=== PATIENT | female | born 1965 | race Caucasian/White ===

== ENCOUNTER 2020-03-18 05:30 | Inpatient (IN) | payer BC ==
[~2020-03-18] VITALS: Ht 157.5 cm; Wt 82.1 kg
[2020-03-18 06:22] LABS: HEMATOCRIT. 41.4 % (36.0-48.0); HEMOGLOBIN. 14.1 g/dL (12.0-16.0); LYMPHOCYTES % 24.7 % (20.0-50.0); MEAN CORPUSCULAR HEMOGLOBIN 28.6 pg (28.0-32.0); MEAN CORPUSCULAR VOLUME 83.9 fL (81.0-99.0); MEAN PLATELET VOLUME 7.4 fl (7.4-10.4); MONOCYTES % 4.9 % (2.0-8.0); NEUTROPHILS % 67.4 % (40.0-76.0); PLATELET 229 x1000/uL (130-400); RED BLOOD CELL COUNT 4.93 mill/uL (4.2-5.4); RED CELL DISTRIBUTION WIDTH 13.8 % (11.6-14.6)
[2020-03-18 06:27] LABS: CHLORIDE 107 mEq/L (98-107)
[2020-03-18] MEDS ORDERED: POTASSIUM CHLORIDE 20MEQ TABLET SR PO ONE (07:00)
[2020-03-18] MEDS ORDERED: ASPIRIN 325MG TABLET PO ONE (07:00)
[2020-03-18] MEDS ORDERED: KCL 10MEQ/50ML PREMIX 50 ML IV ONE (07:00)
[2020-03-18] MEDS ORDERED: ACETAMINOPHEN 325MG TABLET PO PRN ×2 (07:45)
[2020-03-18] MEDS ORDERED: IPRATROPIUM/ALBUTEROL 0.5-3(2.5)MG/3ML NEB NEB PRN (07:45)
[2020-03-18] MEDS ORDERED: GUAIFENESIN 200MG/10ML SUGAR FREE UDC PO PRN (07:45)
[2020-03-18] MEDS ORDERED: ONDANSETRON HCL 4MG/2ML INJ IV PRN (07:45)
[2020-03-18] MEDS ORDERED: MAGNESIUM/ALUMINUM HYDROXIDE/SIMETHICONE 30ML UDC PO PRN (07:45)
[2020-03-18] MEDS ORDERED: CLONIDINE 0.1MG TABLET PO PRN (07:45)
[2020-03-18] MEDS ORDERED: NITROGLYCERIN 0.4MG TABLET SL SL PRN (07:45)
[2020-03-18] MEDS ORDERED: DOCUSATE SODIUM 100MG CAPSULE PO PRN (07:45)
[2020-03-18] MEDS ORDERED: LORAZEPAM 0.5MG TABLET PO PRN (07:45)
[2020-03-18] MEDS ORDERED: TRAMADOL 50MG TABLET PO PRN (07:45)
[2020-03-18 08:03] LABS: ETHANOL BLOOD < 10 mg/dL
[2020-03-18 08:05] LABS: PHOSPHORUS 2.6 mg/dL (2.5-4.9)
[2020-03-18] MEDS ORDERED: POTASSIUM CHLORIDE 20MEQ TABLET SR PO SCH (08:05)
[2020-03-18 08:24] LABS: D-DIMER 0.38 mg/L FEU (<0.50); INR 1.1; PROTHROMBIN TIME 11.5 sec (9.6-11.0)
[2020-03-18] MEDS ORDERED: ENOXAPARIN 100MG/ML SYR SUBCUT SCH (09:00)
[2020-03-18] MEDS: ASPIRIN 325MG EC TABLET PO SCH (09:00)
[2020-03-18 09:59] VITALS: BP 154/89
[2020-03-18] MEDS ORDERED: KCL 20MEQ/100ML PREMIX 100 ML IV SCH (11:00)
[2020-03-18] MEDS: GUAIFENESIN/DM 600MG/30MG ER TAB 12HR PO SCH ×2 (11:35→20:41)
[2020-03-18] MEDS: ZINC SULFATE 220 MG ( 50 ) CAPSULE PO SCH (11:35)
[2020-03-18] MEDS: FAMOTIDINE 20MG TABLET PO SCH ×2 (11:35→20:41)
[2020-03-18] MEDS: ASCORBIC ACID 500 MG TABLET PO SCH ×2 (11:36→20:41)
[2020-03-18] MEDS: LISINOPRIL 20MG TABLET PO SCH ×2 (11:39→20:42)
[2020-03-18 11:48] VITALS: BP 120/68
[2020-03-18 16:00] VITALS: BP 123/79
[2020-03-18 19:51] LABS: CLARITY URINE CLOUDY (CLEAR); COLOR URINE YELLOW (YELLOW); KETONES URINE NEGATIVE (NEGATIVE); LEUKOCYTE ESTERASE URINE 2+ (NEGATIVE); NITRITE URINE NEGATIVE (NEGATIVE); OCCULT BLOOD URINE 1+ (NEGATIVE); PH URINE 5.5 (4.5-8.0); PROTEIN URINE NEGATIVE (NEGATIVE); SPECIFIC GRAVITY URINE 1.022 (1.005-1.030); UROBILINOGEN URINE 0.2 E.U./dL (0.2-1.0)
[2020-03-18 20:00] VITALS: BP 140/80
[2020-03-18] MEDS ORDERED: ZOLPIDEM TARTRATE 5MG TABLET PO PRN (20:00)
[2020-03-18 20:10] LABS: *AMPHETAMINES SCREEN URINE NEGATIVE (NEGATIVE); *BARBITURATES SCREEN URINE NEGATIVE (NEGATIVE); *BENZODIAZEPINES SCREEN URINE NEGATIVE (NEGATIVE); *COCAINE SCREEN URINE NEGATIVE (NEGATIVE)
[2020-03-18 20:11] LABS: CANNABINOID URINE SCREEN NEGATIVE (NEGATIVE); METHADONE URINE SCREEN NEGATIVE (NEGATIVE); OPIATES URINE SCREEN PRESUMTIVE POSITIVE (NEGATIVE); PHENCYCLIDINE URINE SCREEN NEGATIVE (NEGATIVE)
[2020-03-18] MEDS: ENOXAPARIN 80MG/0.8ML SYR SUBCUT SCH (20:44)
[2020-03-19] VITALS: BP 160/98
[2020-03-19 04:00] VITALS: BP 122/86
[2020-03-19] MEDS: FAMOTIDINE 20MG TABLET PO SCH ×2 (09:00→20:31)
[2020-03-19] MEDS: ASPIRIN 325MG EC TABLET PO SCH (09:00)
[2020-03-19] MEDS: LISINOPRIL 20MG TABLET PO SCH ×2 (09:00→20:31)
[2020-03-19] MEDS: ENOXAPARIN 80MG/0.8ML SYR SUBCUT SCH ×2 (09:00→20:32)
[2020-03-19] MEDS: GUAIFENESIN/DM 600MG/30MG ER TAB 12HR PO SCH ×2 (09:00→20:31)
[2020-03-19] MEDS: ZINC SULFATE 220 MG ( 50 ) CAPSULE PO SCH (09:00)
[2020-03-19] MEDS: ASCORBIC ACID 500 MG TABLET PO SCH ×2 (09:00→20:31)
[2020-03-19 12:00] VITALS: BP 130/77
[2020-03-19] MEDS ORDERED: MIDAZOLAM HCL 2 MG/2 ML VIAL ONE (13:45)
[2020-03-19] MEDS ORDERED: FENTANYL CITRATE/PF 50MCG/ML 2ML VIAL ONE (13:45)
[2020-03-19] MEDS ORDERED: HEPARIN SODIUM 1,000 UNIT/1ML VIAL IV ONE (15:12)
[2020-03-19] MEDS ORDERED: ATROPINE SULFATE 1MG/10ML SYR IV PRN (16:15)
[2020-03-19 20:00] VITALS: BP 143/81
[2020-03-19 20:17] LABS: CHLORIDE 106 mEq/L (98-107)
[2020-03-19 20:24] LABS: PHOSPHORUS 3.4 mg/dL (2.5-4.9)
[2020-03-20] VITALS: BP 110/72
[2020-03-20 04:00] VITALS: BP 136/84
[2020-03-20 04:30] LABS: BASOPHILS % 1.2 % (0.0-2.0); CHLORIDE 107 mEq/L (98-107); EOSINOPHILS % 4.1 % (0.0-5.0); HEMATOCRIT. 41.6 % (36.0-48.0); HEMOGLOBIN. 14.1 g/dL (12.0-16.0); LYMPHOCYTES % 29.9 % (20.0-50.0); MEAN CORPUSCULAR HEMOGLOBIN 28.6 pg (28.0-32.0); MEAN CORPUSCULAR VOLUME 84.6 fL (81.0-99.0); MEAN PLATELET VOLUME 7.8 fl (7.4-10.4); MONOCYTES % 7.2 % (2.0-8.0); NEUTROPHILS % 57.6 % (40.0-76.0); PLATELET 218 x1000/uL (130-400); RED BLOOD CELL COUNT 4.92 mill/uL (4.2-5.4); RED CELL DISTRIBUTION WIDTH 13.6 % (11.6-14.6)
[2020-03-20 08:00] VITALS: BP 138/75
[2020-03-20] MEDS: ENOXAPARIN 80MG/0.8ML SYR SUBCUT SCH (09:00)
[2020-03-20] MEDS: ZINC SULFATE 220 MG ( 50 ) CAPSULE PO SCH (09:12)
[2020-03-20] MEDS: ASPIRIN 325MG EC TABLET PO SCH (09:12)
[2020-03-20] MEDS: ASCORBIC ACID 500 MG TABLET PO SCH (09:12)
[2020-03-20] MEDS: LISINOPRIL 20MG TABLET PO SCH (09:12)
[2020-03-20] MEDS: GUAIFENESIN/DM 600MG/30MG ER TAB 12HR PO SCH (09:12)
[2020-03-20] MEDS: FAMOTIDINE 20MG TABLET PO SCH (09:12)
[2020-03-20 09:48] VITALS: BP 138/75
[2020-03-20] MEDS ORDERED: ATOR10TA MT (12:37)
== END 2020-03-20 15:10 | disposition home or self-care (01) | DRG 281 ==
LOC: ER 05:30 → 8WST 06:54 → EDBEDREQTM 07:03 → EDBEDREQ 07:03 → ENRESERV 07:52 → ER 08:59
PROVIDERS: ADMIT Internal Medicine; ATTEND Internal Medicine
PROC: B34HZZZ Ultrasonography of Right Upper Extremity Arteries (ICD-10-PCS; principal; 2020-03-19)
PROC: B211YZZ Fluoroscopy of Multiple Coronary Arteries using Other Contrast (ICD-10-PCS; 2020-03-19)
DX: I21.4 Non-ST elevation (NSTEMI) myocardial infarction (principal); I50.22 Chronic systolic (congestive) heart failure; E87.2 Acidosis; I42.0 Dilated cardiomyopathy; E44.1 Mild protein-calorie malnutrition; E87.6 Hypokalemia; E66.9 Obesity, unspecified; I25.10 Atherosclerotic heart disease of native coronary artery without angina pectoris; K52.9 Noninfective gastroenteritis and colitis, unspecified; E78.00 Pure hypercholesterolemia, unspecified; I11.0 Hypertensive heart disease with heart failure; Z68.33 Body mass index [BMI] 33.0-33.9, adult
CPT/HCPCS: 36415; 71045; 80048; 80053; 80061; 80305; 80320; 81003; 82728; 83036; 83605; 83615; 83735; 83880; 84100; 84145; 84484; 85025; 85379; 93005; 93306; 93454; 93970; 99291; C1769; C1887; C1893; J1644; J1650; J2250; J3010; J3480; G0480

== ENCOUNTER 2024-07-11 08:24 | Inpatient (IN) | payer BC ==
[2024-07-11] VITALS (36 sets, daily range): BP systolic 80–127; BP diastolic 54–101; PULSE 82–109; RESP 14–22; TEMP 36.6696–37.00296; O2SAT 91–100
[~2024-07-11] VITALS: Ht 157.5 cm; Wt 87.5 kg
[~2024-07-11 08:24] MED LIST: ATOR10TA MT
[2024-07-11 09:01] LABS: CHLORIDE 105 mEq/L (98-107); SODIUM 142 mEq/L (136-145)
[2024-07-11 09:02] LABS: CALCIUM 8.9 mg/dL (8.7-10.4); CARBON DIOXIDE 29 mEq/L (21-32)
[2024-07-11 09:06] LABS: BASOPHILS % 0.7 % (0.0-2.0); EOSINOPHILS % 2.3 % (0.0-5.0); HEMATOCRIT. 45.5 % (36.0-48.0); HEMOGLOBIN. 15.3 g/dL (12.0-16.0); LYMPHOCYTES % 18.7 % (20.0-50.0); MEAN CORPUSCULAR HEMOGLOBIN 29.4 pg (28.0-32.0); MEAN CORPUSCULAR HGB CONC 33.7 g/dL (31.0-37.0); MEAN CORPUSCULAR VOLUME 87.3 fL (81.0-99.0); MEAN PLATELET VOLUME 7.6 fl (7.4-10.4); MONOCYTES % 6.1 % (2.0-8.0); NEUTROPHILS % 72.2 % (40.0-76.0); PLATELET 211 x1000/uL (130-400); RED BLOOD CELL COUNT 5.21 mill/uL (4.2-5.4); WHITE BLOOD COUNT 9.2 x1000/uL (4.5-11.0)
[2024-07-11 09:07] LABS: CREATININE 0.8 mg/dL (0.6-1.0); GLUCOSE 134 mg/dL (70-105); UREA NITROGEN BLOOD 9 mg/dL (9-23)
[2024-07-11] MEDS: TENECTEPLASE 50MG/VIAL IV ONE (09:10)
[2024-07-11 09:17] LABS: ETHANOL BLOOD < 10 mg/dL (<10)
[2024-07-11] MEDS ORDERED: FURO40TA5 PO (09:18)
[2024-07-11] MEDS ORDERED: METO-396 PO (09:18)
[2024-07-11] MEDS ORDERED: POTA-204 PO (09:18)
[2024-07-11] MEDS ORDERED: ATOR40TA70 PO (09:18)
[2024-07-11] MEDS ORDERED: VALS40TA11 PO (09:18)
[2024-07-11] MEDS ORDERED: SACU1TAB PO (09:18)
[2024-07-11 09:19] LABS: INR 1.1; TROPONIN I HIGH SENSITIVITY 574 ng/L (3.0-34)
[2024-07-11] MEDS: IOHEXOL-350 100 ML BOTTLE ONE (09:28)
[2024-07-11] MEDS ORDERED: GUAIFENESIN 200MG/10ML SUGAR FREE UDC PO PRN (09:30)
[2024-07-11] MEDS ORDERED: LABETALOL 5MG/ML 4ML INJ IV PRN (09:30)
[2024-07-11] MEDS ORDERED: MAGNESIUM/ALUMINUM HYDROXIDE/SIMETHICONE 30ML UDC PO PRN (09:30)
[2024-07-11] MEDS ORDERED: DOCUSATE SODIUM 100MG CAPSULE PO PRN (09:30)
[2024-07-11] MEDS ORDERED: IPRATROPIUM/ALBUTEROL 0.5-3(2.5)MG/3ML NEB HHN PRN (09:30)
[2024-07-11] MEDS ORDERED: ONDANSETRON HCL 4MG/2ML INJ IV PRN (09:30)
[2024-07-11] MEDS ORDERED: ATORVASTATIN CALCIUM 20MG TABLET PO SCH (09:45)
[2024-07-11] MEDS ORDERED: *TENECTEPLASE FOR AIS XX SCH (09:45)
[2024-07-11 10:13] LABS: T4 FREE 1.14 ng/dL (0.89-1.76)
[2024-07-11 10:14] LABS: THYROID STIMULATING HORMONE 2.55 uIU/mL (0.55-4.78)
[2024-07-11] MEDS: KCL 20MEQ/100ML PREMIX 100 ML IV SCH (10:27)
[2024-07-11 12:16] LABS: VITAMIN B12 SERUM 976 pg/mL (211-911)
[2024-07-11] MEDS ORDERED: NICARDIPINE 100 MG in SODIUM CHLORIDE 0.9% 60 ML IV PRN (16:30)
[2024-07-11] MEDS ORDERED: NICARDIPINE 40MG/200ML PREMIX 200 ML IV PRN (17:00)
[2024-07-11] MEDS: FAMOTIDINE 20MG TABLET PO SCH (21:45)
[2024-07-11] MEDS: ATORVASTATIN CALCIUM 40MG TABLET PO SCH (21:45)
[2024-07-11 22:50] LABS: CREATINE KINASE 64 IU/L (34-145)
[2024-07-12] VITALS (81 sets, daily range): BP systolic 95–161; BP diastolic 37–111; PULSE 85–111; RESP 13–34; TEMP 36.44736–36.6696; O2SAT 89–98
[2024-07-12] MEDS: ACETAMINOPHEN 325MG TABLET PO PRN (03:21)
[2024-07-12 04:35] LABS: CHLORIDE 105 mEq/L (98-107); SODIUM 142 mEq/L (136-145)
[2024-07-12 04:36] LABS: CALCIUM 9.1 mg/dL (8.7-10.4); CARBON DIOXIDE 27 mEq/L (21-32)
[2024-07-12 04:41] LABS: CREATININE 0.7 mg/dL (0.6-1.0); GLUCOSE 105 mg/dL (70-105); UREA NITROGEN BLOOD 15 mg/dL (9-23)
[2024-07-12 04:53] LABS: BASOPHILS % 0.7 % (0.0-2.0); HEMATOCRIT. 44.3 % (36.0-48.0); HEMOGLOBIN. 14.9 g/dL (12.0-16.0); MEAN CORPUSCULAR HEMOGLOBIN 29.5 pg (28.0-32.0); MEAN CORPUSCULAR HGB CONC 33.5 g/dL (31.0-37.0); MEAN PLATELET VOLUME 7.9 fl (7.4-10.4); MONOCYTES % 8.3 % (2.0-8.0); PLATELET 205 x1000/uL (130-400); RED BLOOD CELL COUNT 5.03 mill/uL (4.2-5.4); RED CELL DISTRIBUTION WIDTH 14.4 % (11.6-14.6); WHITE BLOOD COUNT 7.9 x1000/uL (4.5-11.0)
[2024-07-12] MEDS: KCL 20MEQ/100ML PREMIX 100 ML IV SCH (08:40)
[2024-07-12] MEDS: FUROSEMIDE 40MG TABLET PO SCH (08:40)
[2024-07-12 09:37] LABS: TROPONIN I HIGH SENSITIVITY 494 ng/L (3.0-34)
[2024-07-12] MEDS: KCL 20MEQ/100ML PREMIX 100 ML IV NR (10:15)
[2024-07-12] MEDS: POTASSIUM CHLORIDE 20MEQ TABLET SR PO NR (11:39)
[2024-07-12] MEDS: MELATONIN 3MG TABLET PO NR (23:01)
[2024-07-13] VITALS: BP 112/69; PULSE 107; RESP 19; TEMP 36.28068; O2SAT 94
[2024-07-13 04:00] VITALS: BP 96/63; PULSE 95; RESP 19; TEMP 36.89184; O2SAT 98
[2024-07-13 08:00] VITALS: BP 115/83; PULSE 85; RESP 18; TEMP 36.28068; O2SAT 93
[2024-07-13] MEDS: ASPIRIN 81MG TABLET PO SCH (08:47)
[2024-07-13] MEDS: CLOPIDOGREL 75MG TABLET PO SCH (08:47)
[2024-07-13] MEDS ORDERED: CLOP-31 PO (10:14)
[2024-07-13] MEDS ORDERED: ASPI-1406 PO (10:14)
[2024-07-13 11:47] VITALS: BP 115/83; PULSE 95; TEMP 97.3; O2SAT 93
[2024-07-13 12:00] VITALS: BP 119/90; PULSE 101; RESP 19; TEMP 36.3918; TEMP 36.39180; O2SAT 95
[2024-07-13 12:36] LABS: BASOPHILS % 0.7 % (0.0-2.0); EOSINOPHILS % 3.1 % (0.0-5.0); HEMATOCRIT. 46.4 % (36.0-48.0); HEMOGLOBIN. 15.5 g/dL (12.0-16.0); MEAN CORPUSCULAR HEMOGLOBIN 29.2 pg (28.0-32.0); MEAN CORPUSCULAR HGB CONC 33.4 g/dL (31.0-37.0); MEAN CORPUSCULAR VOLUME 87.3 fL (81.0-99.0); MEAN PLATELET VOLUME 7.7 fl (7.4-10.4); MONOCYTES % 9.4 % (2.0-8.0); NEUTROPHILS % 57.8 % (40.0-76.0); PLATELET 217 x1000/uL (130-400); RED BLOOD CELL COUNT 5.32 mill/uL (4.2-5.4); RED CELL DISTRIBUTION WIDTH 14.3 % (11.6-14.6); WHITE BLOOD COUNT 6.6 x1000/uL (4.5-11.0)
[2024-07-13 12:51] LABS: CHLORIDE 105 mEq/L (98-107); POTASSIUM 3.2 mEq/L (3.5-5.1); SODIUM 141 mEq/L (136-145)
[2024-07-13 12:52] LABS: CALCIUM 9.5 mg/dL (8.7-10.4); CARBON DIOXIDE 27 mEq/L (21-32)
[2024-07-13 12:57] LABS: CREATININE 0.8 mg/dL (0.6-1.0); GLUCOSE 142 mg/dL (70-105); UREA NITROGEN BLOOD 14 mg/dL (9-23)
[2024-07-13 12:59] LABS: PHOSPHORUS 3.1 mg/dL (2.5-4.9)
== END 2024-07-13 13:00 | disposition home or self-care (01) | DRG 61 ==
LOC: ER 08:24 → MICUSO 09:17 → EDBEDREQSVC 09:19 → EDBEDREQTM 09:19 → EDBEDREQ 09:19 → 7EST 07-12 18:51
PROVIDERS: ADMIT Internal Medicine; ATTEND Internal Medicine
DX: I63.9 Cerebral infarction, unspecified (principal); I21.4 Non-ST elevation (NSTEMI) myocardial infarction; I50.22 Chronic systolic (congestive) heart failure; I42.9 Cardiomyopathy, unspecified; G81.94 Hemiplegia, unspecified affecting left nondominant side; I11.0 Hypertensive heart disease with heart failure; E87.6 Hypokalemia; E78.5 Hyperlipidemia, unspecified; E66.01 Morbid (severe) obesity due to excess calories; I44.7 Left bundle-branch block, unspecified; I34.0 Nonrheumatic mitral (valve) insufficiency; E66.9 Obesity, unspecified; R73.03 Prediabetes; Z68.35 Body mass index [BMI] 35.0-35.9, adult; Z79.899 Other long term (current) drug therapy; Z82.49 Family history of ischemic heart disease and other diseases of the circulatory system; Z87.891 Personal history of nicotine dependence
CPT/HCPCS: 36415; 70496; 70498; 70551; 71045; 80048; 80061; 80320; 82550; 82607; 83036; 83735; 84100; 84439; 84443; 84484; 85025; 85379; 93005; 93306; 93970; 97161; 97166; 99291; J3101; J3480; Q9967; G0480